=== PATIENT | female | born 1970 | race American Indian/Alaskan Native ===

== ENCOUNTER 2016-08-20 13:02 | Emergency (ER) | payer OTHER, BC ==
[2016-08-20 13:22] VITALS: BP 133/95
[2016-08-20] MEDS ORDERED: TORADOL IM ONE (13:45)
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
== END 2016-08-20 15:10 | disposition home or self-care (01) ==
LOC: ED 13:02
DX: S39.012A Strain of muscle, fascia and tendon of lower back, initial encounter (principal); S16.1XXA Strain of muscle, fascia and tendon at neck level, initial encounter; V49.59XA Passenger injured in collision with other motor vehicles in traffic accident, initial encounter; Y93.9 Activity, unspecified; Y92.9 Unspecified place or not applicable; Y99.9 Unspecified external cause status
CPT/HCPCS: 72040; 72100; 96372; 99283; J1885